=== PATIENT | female | born 1980 | race Caucasian/White ===

== ENCOUNTER 2021-01-16 12:41 | Emergency (ER) | payer OTHER, SELFPAY ==
[2021-01-16 12:50] VITALS: BP 175/87; PULSE 102; RESP 18; TEMP 38.7; O2SAT 100
--- NOTE | 2021-01-16 13:03 | ED.URI ---
HPI - URI/Sore Throat General Chief Complaint: Upper Respiratory Infection Stated Complaint: Sore Throat Source: patient and RN notes reviewed Limitations: no limitations History of Present Illness HPI Narrative: The patient, previously mostly healthy yet without doctor, presents with sore throat. Patient indicates she has a shorter 2-day history of isolated, specific sore throat. This is associated with chills; no earache, cough, congestion; no loss of taste or smell, CP, vomiting/diarrhea, rash, S OB. Symptoms are mild worse with eating Related Data Allergies Allergy/AdvReac Type Severity Reaction Status Date / Time tramadol Allergy Mild Nausea Verified 01/16/21 13:06 trazodone Allergy Mild Nervousness Verified 01/16/21 13:06 clindamycin Allergy Unknown Other Verified 01/16/21 13:06 Review of Systems Review of Systems: General/Constitutional: No weight loss,fever Eyes: N0: Redness,discharge Ears/Nose/Throat: No: Epistaxis,ear discharge Respiratory: Denies: Hemoptysis Gastrointestinal: No Vomiting, Bleeding-rectal Skin: No Lumps, eruption Neurologic: No Focal Weakness,Sz Hematologic: Denies: Petechiae/Purpura Psychiatric: No: Suicida ideationl PMFSH Family History Family History Mother Family history of obesity Family history of hypercholesterolemia Family history of type 2 diabetes mellitus Grandparent Family history of malignant neoplasm of brain Father Family history of hypercholesterolemia Hypertension Family history of type 2 diabetes mellitus Social History Social History Smoking status: Smoker, status unknown Alcohol intake: never Comments At time of signature, agree with nursing past medical, and family history. There is no relevant family history pertinent to the presenting complaint Exam Narrative: General Appearance: Well appearing, Well nourished EYE: PERRLA, Conjunctiva clear Ears: Auditory canal normal, TM normal Nose: Rhinorrhea, Mucousal erythema Mouth/Throat: MM moist, Uvula midline, Pharyngeal erythema, with exudate Neck: Supple, + adenopathy Respiratory: No respiratory distress, Breath sounds equal, Clear to auscultation Cardiovascular: RRR, No JVD Musculoskeletal: Non tender, Normal strength Skin: Warm, Dry Neurological: A&O x3, , Normal affect Course Vital Signs Vital signs: Vital Signs Temperature 101.6 F H 01/16/21 12:50 Pulse Rate 102 H 01/16/21 12:50 Respiratory Rate 18 01/16/21 12:50 Blood Pressure 175/87 H 01/16/21 12:50 Pulse Oximetry 100 01/16/21 12:50 Temperature 101.6 F H 01/16/21 12:50 Pulse Rate 102 H 01/16/21 12:50 Respiratory Rate 18 01/16/21 12:50 Blood Pressure 175/87 H 01/16/21 12:50 Pulse Oximetry 100 01/16/21 12:50 MDM - URI/Sore Throat Lab Data Labs: Strep Screen Positive Group A Strep *(Reference Range: Negative)* Discharge Plan Discharge Clinical Impression: Strep pharyngitis Patient Disposition: Home, Self-Care Condition: Stable Instructions: Antibiotic Form Prescriptions: New amoxicillin-pot clavulanate [Augmentin] 500-125 mg tablet 1 tablet PO Q8H Qty: 30 RF: 0 lidocaine HCl [Lidocaine Viscous] 2 % solution 5 ml MUCOUS MEM QID PRN (Reason: pain) Qty: 100 RF: 0 Follow-up/Referrals: PHYSICIAN,LINSEED CAKE TRIMMER [Primary Care Provider] - Stand Alone Forms: Work/School Release IP
== END 2021-01-16 13:13 | disposition home or self-care (01) ==
PROVIDERS: Emergency Provider Emergency Medicine
DX: J02.0 Streptococcal pharyngitis (principal)
CPT/HCPCS: 87880; 99213; G0463

== ENCOUNTER 2021-04-26 12:51 | Emergency (ER) | payer SELFPAY ==
--- NOTE | ~2021-04-26 | XR_ITS ---
XR foot RT min 3V DATE: 04/26/2021 13:13 INDICATION: Fall. Right foot pain TECHNIQUE: 4 views COMPARISON: None FINDINGS: Plantar calcaneal enthesopathy. No fracture, dislocation, periosteal reaction or bone destruction is detected. IMPRESSION: No fracture or dislocation Plantar calcaneal enthesopathy Reviewed, dictated and finalized at location A. BLACKER
[2021-04-26 13:00] VITALS: BP 141/78; PULSE 101; RESP 18; TEMP 36.4; O2SAT 98
--- NOTE | 2021-04-26 13:37 | ED.LOWEXIN ---
HPI - Extremity Injury (Lower) General Chief Complaint: Extremity Injury, Lower Stated Complaint: Right foot Pain Time Seen by Provider: 04/26/21 13:30 Source: patient and RN notes reviewed Mode of arrival: ambulatory Limitations: no limitations History of Present Illness HPI Narrative: Patient presents today complaining of right foot pain. She slipped on some ice last night and injured her foot. Denies numbness or tingling in the foot or toes. She currently rates her pain 8/10 and has tried no medication or ice for symptoms prior to arrival. Pain increases with weightbearing. MD complaint: foot injury Related Data Home Medications Medication Instructions Recorded Confirmed No Home Medications 04/26/21 04/26/21 Allergies Allergy/AdvReac Type Severity Reaction Status Date / Time tramadol Allergy Mild Nausea Verified 04/26/21 12:54 trazodone Allergy Mild Nervousness Verified 04/26/21 12:54 clindamycin Allergy Unknown Other Verified 04/26/21 12:54 Review of Systems Review of Systems: CONSTITUTIONAL: Denies body aches, fever, chills, or sweats. EYES: Denies visual changes, redness, or discharge. ENT: Denies rhinorrhea, congestion, sore throat, or otalgia. CARDIOVASCULAR: Denies chest pain, palpitations, or edema. RESPIRATORY: Denies cough or dyspnea. GASTROINTESTINAL: Denies abdominal pain, nausea, vomiting, or diarrhea. GENITOURINARY: Denies dysuria or hematuria. SKIN: Denies rash, itching, or wounds. MUSCULOSKELETAL: Denies back pain, or myalgia. + Right foot injury NEUROLOGIC: Denies headache, numbness, tingling, or weakness. PSYCH: Denies depression or anxiety. [facility] Family History Family History Mother Family history of obesity Family history of hypercholesterolemia Family history of type 2 diabetes mellitus Grandparent Family history of malignant neoplasm of brain Father Family history of hypercholesterolemia Hypertension Family history of type 2 diabetes mellitus Social History Social History Smoking status: Smoker, status unknown Alcohol intake: never Comments At time of signature, I have reviewed and agree with nursing past medical, surgical, social and family history unless otherwise noted. Please see nursing chart for further information. There is no relevant family history pertinent to the presenting complaint Exam Narrative: GENERAL: Well-appearing, well-nourished, and in no acute distress. HEAD: Normocephalic, atraumatic. EYES: EOMI. No redness or drainage. Conjunctivae normal. ENT: Mucous membranes pink and moist. NECK: Normal AROM. CHEST: No respiratory distress. EXTREMITIES: Right foot: Tenderness to the plantar aspect of the foot starting at the arch and extending distally to the ball of the foot. No tenderness to the dorsum of the foot. No edema noted. No ecchymosis. Distal sensation intact good capillary refill normal. Pedal pulse normal. Full range of motion of the toes. SKIN: Warm, dry, no rash. Capillary refill normal. Normal skin turgor. NEURO: No focal deficits. Alert and oriented x3. Gait steady. PSYCH: Normal affect. No signs of depression or anxiety. Course Course Level of Care: Express Care Visit Vital Signs Vital signs: Vital Signs Temperature 97.6 F 04/26/21 13:00 Pulse Rate 101 H 04/26/21 13:00 Respiratory Rate 18 04/26/21 13:00 Blood Pressure 141/78 H 04/26/21 13:00 Pulse Oximetry 98 04/26/21 13:00 Temperature 97.6 F 04/26/21 13:00 Pulse Rate 101 H 04/26/21 13:00 Respiratory Rate 18 04/26/21 13:00 Blood Pressure 141/78 H 04/26/21 13:00 Pulse Oximetry 98 04/26/21 13:00 Reviewed. Pt has been instructed to follow up with her PCP regarding her elevated blood pressure today. MDM - Extremity Injury (Lower) Differential Diagnosis Differential diagnosis: Likely other (Foot fracture, contusi
== END 2021-04-26 13:45 | disposition home or self-care (01) ==
PROVIDERS: Emergency Provider Nurse Practitioner
DX: S93.601A Unspecified sprain of right foot, initial encounter (principal); W00.0XXA Fall on same level due to ice and snow, initial encounter
CPT/HCPCS: 73630; 99213; G0463

== ENCOUNTER 2021-11-06 18:19 | Emergency (ER) | payer OTHER, SELFPAY ==
--- NOTE | 2021-11-06 18:23 | ED.URI ---
HPI - URI/Sore Throat General Chief Complaint: Upper Respiratory Infection Stated Complaint: Cough, joint pain, chills Time Seen by Provider: 11/06/21 18:23 Source: patient Mode of arrival: ambulatory Limitations: no limitations History of Present Illness HPI Narrative: Mr. Johnathon Valdez is a 41-year-old female patient presenting to the clinic today with complaints of fever, chills, fatigue, body aches, sore throat, and left-sided abdominal discomfort. She reports this is been going on for a couple days. She denies any known exposure to strep,COVID, or influenza MD elicited complaint: sore throat and nasal congestion Related Data Allergies Allergy/AdvReac Type Severity Reaction Status Date / Time tramadol Allergy Mild Nausea Verified 11/06/21 18:26 trazodone Allergy Mild Nervousness Verified 11/06/21 18:26 clindamycin Allergy Unknown Other Verified 11/06/21 18:26 Review of Systems Review of Systems: Pertinent positives per HPI. Patient denies any fever, rash, headache, visual changes, dizziness, shortness of breath, chest pain, palpitations, nausea, vomiting, diarrhea, constipation, abdominal pain, or any urinary issues. [facility] Family History Family History Mother Family history of obesity Family history of hypercholesterolemia Family history of type 2 diabetes mellitus Grandparent Family history of malignant neoplasm of brain Father Family history of hypercholesterolemia Hypertension Family history of type 2 diabetes mellitus Social History Social History Smoking status: Smoker, status unknown Alcohol intake: never Comments At the time of my signature, I reviewed and agree with the nursing past medical, surgical, social, and family history. There is no relevant family history pertinent to the patient complaint. Exam Narrative: General: Well-developed, obese, in no apparent distress Head: Normocephalic, atraumatic Eyes: Pupils equally round and reactive to light bilaterally, EOM intact, sclera and conjunctive clear, no discharge, lids normal Ears: TMs intact and clear, ear canals clear, no drainage, grossly hearing normal. Nose: Nares patent, clear discharge, mild inflammation, no sinus tenderness. Mouth: Oral pharynx without lesions or masses, good dentition, MMM. Oropharynx red, tonsillar enlargement with yellow-white exudate left greater than right Neck: Supple, trachea midline, positive enlargement of anterior cervical nodes, no thyroid masses or goiter palpable. Cardio: Regular rate and rhythm, s1 and s2 normal, no murmur appreciated. Resp: Clear to auscultation bilaterally, no rhonchi, rales, wheezing or rubs Course Course Emergency Course: Portions of this record may have been created with voice recognition software. Level of Care: Express Care Visit Vital Signs Vital signs: Vital signs reviewed MDM - URI/Sore Throat MDM Narrative Medical decision making narrative: At the time of visit patient is resting comfortably on the exam table. COVID testing and strep culture was obtained. COVID testing was negative in the clinic. I will go ahead and treat for strep pharyngitis as patient has 4-4 Centor criteria. Supportive measures were discussed with the patient she voiced understanding of discharge instructions and agrees to treatment plan. Differential Diagnosis Differential diagnosis: Likely upper respiratory infection, sinusitis, viral infection, bronchitis, influenza, pharyngitis and other (COVID) Discharge Plan Discharge Clinical Impression: Exudative pharyngitis Patient Disposition: Home, Self-Care Condition: Stable Instructions: Antibiotic Form, Pharyngitis (ED) Additional Instructions: Take prescription medications only as prescribed-amoxicillin as prescribed Increase fluids and stay well hydrated Tylenol/motrin for pain/fever Flonase and OTC an
[2021-11-06 18:29] VITALS: BP 132/78; PULSE 102; RESP 20; TEMP 38.1; O2SAT 100
== END 2021-11-06 18:58 | disposition home or self-care (01) ==
PROVIDERS: Emergency Provider Nurse Practitioner Family
DX: J02.9 Acute pharyngitis, unspecified (principal); Z20.822 Contact with and (suspected) exposure to COVID-19
CPT/HCPCS: 87081; 87147; 87426; 99213; C9803; G0463

== ENCOUNTER 2021-11-08 11:34 | Emergency (ER) | payer OTHER, SELFPAY ==
[2021-11-08 11:42] VITALS: BP 141/90; PULSE 92; RESP 16; TEMP 36.9; O2SAT 99
--- NOTE | 2021-11-08 11:43 | ED.URI ---
HPI - URI/Sore Throat General Chief Complaint: Upper Respiratory Infection Stated Complaint: uri Time Seen by Provider: 11/08/21 11:43 Source: patient, RN notes reviewed and old records reviewed Mode of arrival: ambulatory Limitations: no limitations History of Present Illness HPI Narrative: 41-year-old female presents to the [facility] with continued complaints. Was seen 2 days ago for sore throat, swollen tonsils, treated for strep. Patient states she has had 3 doses of amoxicillin still not better. States it still hurts to swallow. Has a history of strep throat. Patient still able to swallow. No drooling noted. Talking in full sentences. MD elicited complaint: sore throat Related Data Allergies Allergy/AdvReac Type Severity Reaction Status Date / Time tramadol Allergy Mild Nausea Verified 11/08/21 11:43 trazodone Allergy Mild Nervousness Verified 11/08/21 11:43 clindamycin Allergy Unknown Other Verified 11/08/21 11:43 Review of Systems Review of Systems: All systems reviewed & are unremarkable except as noted in HPI and below Constitutional: Constitutional: Reports no additional constitutional complaints, Denies chills and Denies fever(s) Eyes: Eyes: Reports no additional eye complaints ENT: Reports as per HPI and Reports sore throat Cardiovascular: Cardiovascular: Reports no additional cardiovascular complaints Respiratory: Respiratory: Reports no additional respiratory complaints Gastrointestinal: Gastrointestinal: Reports no additional gastrointestinal complaints Musculoskeletal: Musculoskeletal: Reports no additional musculoskeletal complaints Integumentary/Breasts: Skin/Breast: Reports system reviewed and no additional complaints, except as docu Neurologic: Reports system reviewed and no additional complaints, except as documented Psychiatric: Psychiatric: Reports no additional psychiatric complaints Allergic/Immunologic: Allergic/Immunologic: Reports no additional allergic/immunologic complaints [facility] Family History Family History Mother Family history of obesity Family history of hypercholesterolemia Family history of type 2 diabetes mellitus Grandparent Family history of malignant neoplasm of brain Father Family history of hypercholesterolemia Hypertension Family history of type 2 diabetes mellitus Social History Social History Smoking status: Smoker, status unknown Alcohol intake: never Comments At the time of my signature, I reviewed and agree with the nursing past medical, surgical, social, and family history. There is no relevant family history pertinent to the patient complaint. Exam Const: General: healthy appearing, no acute distress and alert Nutritional Appearance: well nourished Orientation/consciousness: patient oriented x3 Limitations: no limitations HENMT: Head: normal to inspection Ears: external ears normal, TM's normal bilaterally and EAC's normal General nose exam: Normal external nose present Mouth: Yes Normal oral and palatal mucosa present and Yes lip normal Throat: uvula midline, abnormal tonsil bilateral erythema, exudates and hypertrophy 3+; Negative for crypts and no uvular edema Eyes: General: appearance normal, both eyes and all related structures Conjunctivae: conjunctivae normal Pupils: Equal, round and reactive pupils present Neck: Neck: normal visual inspection, no lymphadenopathy and no meningeal signs Chest: Chest palpation & inspection: normal inspection of the chest Resp: Effort & Inspection: normal respiratory effort and no use of accessory muscles Auscultation: clear to auscultation bilaterally, no crackles, no rales, no rhonchi and no wheezes Cardio: Rate: regular rate Rhythm: regular rhythm Back/Spine/Pelvis: Cervical Spine: normal cervical lordosis Thoracic/Lumbar Spine: thoracic and lumbar spine normal to inspection Skin
[2021-11-08] MEDS: predniSONE 20 MG TABLET 40 MG PO (11:55)
== END 2021-11-08 12:24 | disposition home or self-care (01) ==
PROVIDERS: Emergency Provider Nurse Practitioner
DX: J03.90 Acute tonsillitis, unspecified (principal)
CPT/HCPCS: 36416; 86308; 99213; G0463; J7512

== ENCOUNTER 2022-12-23 09:43 | Emergency (ER) | payer OTHER, SELFPAY ==
[2022-12-23] VITALS (7 sets, daily range): BP systolic 109–125; BP diastolic 78–90; PULSE 79–108; RESP 12–18; TEMP 36.4–36.7; O2SAT 96–99
--- NOTE | ~2022-12-23 | CT_ITS ---
EXAMINATION: CTA chest PE protocol DATE: 12/23/2022 12:56 INDICATION: Elevated d-dimer. Pleuritic chest pain. TECHNIQUE: Computed tomography angiography (CTA) of the chest was performed with 100 mL Omnipaque-350 intravenous contrast timed to evaluate the pulmonary arteries. Coronal maximum intensity projection 3D-reconstructions were created by the technologist. Automated exposure control and iterative reconst ruction technique were employed. Exam dose: 539.56 mGy-cm total exam DLP. COMPARISON: 12/23/2022 PA and lateral chest FINDINGS: There is diagnostic contrast enhancement of the pulmonary arteries and no evidence of pulmo nary embolism. No thoracic aortic aneurysm or dissection. No hilar or mediastinal mass lesion or lymphadenopathy. Heart size is within normal range. No pericardial or pleural effusion. Normal morphology of the adrenal glands. There is atelectasis involving both lungs, primarily the mid and particularly lower lung zones. Other butts no pulmonary consolidation or pulmonary mass lesion is evident. Hepatic steatosis with minimal sparing around the gallbladder. Included skeletal structures are unremarkable. There is IMPRESSION: No evidence of pulmonary embolism Reviewed, dictated and finalized at Location A. Reviewed, dictated and finalized at location B.
--- NOTE | ~2022-12-23 | US_ITS ---
EXAMINATION: US venous doppler [facility] DATE: 12/23/2022 13:53 INDICATION: Pleuritic chest pain. Elevated d-dimer. TECHNIQUE: Grayscale ultrasound images without and with compression and Doppler ultrasound images of the bilateral lower extremity veins were obtained. COMPARISON: None. FINDINGS: The visualized portions of right common femoral vein, profunda (deep) femoral vein, femoral vein, pop liteal vein, posterior tibial veins, peroneal veins, gastrocnemius vein and greater saphenous vein ou tflow are patent. The visualized portions of left common femoral vein, profunda femoral vein, femoral vein, popliteal v ein, posterior tibial veins, peroneal veins, gastrocnemius vein and greater saphenous vein outflow ar e patent. IMPRESSION: 1. No deep venous thrombosis in either lower limb. Reviewed, dictated and finalized at location A.
--- NOTE | ~2022-12-23 | XR_ITS ---
XR chest 2V DATE: 12/23/2022 11:30 INDICATION: Pleuritic chest pain, cough TECHNIQUE: PA and lateral views COMPARISON: 02/07/2018 PA and lateral chest FINDINGS: There is suboptimal expansion of the lungs compared to 02/07/2018 with mild atelectasis in the lower lung zones. No pulmonary consolidation, pleural effusion, pulmonary vascular congestion or pneumothorax is detected. Heart size appears within normal range. IMPRESSION: Suboptimal lung expansion and bilateral lower lung atelectasis compared to 02/07/2018 Reviewed, dictated and finalized at location B. IMPRESSION: Suboptimal lung expansion and bilateral lower lung atelectasis comp ared to 02/07/2018
--- NOTE | ~2022-12-23 | CT_ITS ---
EXAMINATION: CT brain wo con DATE: 12/23/2022 11:26 INDICATION: Posterior headache TECHNIQUE: Computed tomography (CT) of the head was performed without intravenous contrast. The mA wa s adjusted according to patient size. Iterative reconstruction technique was employed. Exam dose: 60 5.33 mGy-cm total exam DLP. COMPARISON: None FINDINGS: No intracranial mass lesion, hemorrhage or cerebrovascular accident. No midline shift or m ass effect. Normal ventricular size. No subdural or epidural hematoma. Mild mucoperiosteal thickening of the right sphenoid sinus. Otherwise the paranasal sinuses and masto id air cells are well developed and aerated. No fracture or bone destruction of the cranial vault. IMPRESSION: No significant intracranial abnormality Reviewed, dictated and finalized at Location A. Reviewed, dictated and finalized at location B.
--- NOTE | 2022-12-23 10:50 | ECG_ITS ---
Measurements Intervals [place] Rate: 99 P: 35 [place]: 148 QRS: 51 QRSD: 92 T: 45 QT: 333 QTc: 429 Interpretive Statements SINUS RHYTHM POSSIBLE LEFT ATRIAL ENLARGEMENT [-0.1mV P WAVE IN V1/V2] NONSPECIFIC T-WAVE ABNORMALITY NO PREVIOUS ECG AVAILABLE FOR COMPARISON Electronically Signed On 12-23-2022 14:29:51 CDT by Rosalind Wilson M.D.
--- NOTE | 2022-12-23 10:53 | ED.HA ---
HPI - Headache General Chief Complaint: Headache Stated Complaint: body headache Time Seen by Provider: 12/23/22 10:13 History of Present Illness HPI Narrative: 42-year-old female reports for evaluation for posterior headache, pleuritic chest pain and back pain x3 days. Patient states she normally does not have headaches that last this long. She reports the headache is in her occiput and extends down into her trapezius. Reports the pain is constant. States that the onset of symptoms, she had 1 episode of emesis and diarrhea 3 days ago but has not had any since. She reports pleuritic chest pain that is deep into her bilateral lower chest and also into the mid back, worse with inspiration, palpation and coughing. Denies radiation of chest pain, not exertional. She states it feels like she has to focus her vision but denies blurred vision, diplopia, floaters, eye pain, pain with EOMs. She denies fever, dyspnea, abdominal pain, dysuria, hematuria, dizziness, otalgia, sore throat, nasal congestion. No history of VTE, denies calf pain. Denies head injury, focal numbness or weakness, difficulty walking or talking, saddle anesthesia, bowel or bladder incontinence Related Data Allergies Allergy/AdvReac Type Severity Reaction Status Date / Time tramadol Allergy Mild Nausea Verified 11/08/21 11:43 trazodone Allergy Mild Nervousness Verified 11/08/21 11:43 clindamycin Allergy Unknown Other Verified 11/08/21 11:43 Review of Systems Review of Systems: CONSTITUTIONAL: Denies fever, chills EYES: Denies visual changes, redness, or discharge. ENT: Denies rhinorrhea, congestion, sore throat, or otalgia. CARDIOVASCULAR: See HPI RESPIRATORY: See HPI GASTROINTESTINAL: Denies abdominal pain, nausea, vomiting, or diarrhea. GENITOURINARY: Denies dysuria or hematuria. SKIN: Denies rash or itching. MUSCULOSKELETAL: See HPI NEUROLOGIC: See HPI PSYCHIATRIC: Denies anxiety or depression. [facility] Family History Family History Mother Family history of obesity Family history of hypercholesterolemia Family history of type 2 diabetes mellitus Grandparent Family history of malignant neoplasm of brain Father Family history of hypercholesterolemia Hypertension Family history of type 2 diabetes mellitus Social History Social History Smoking status: Smoker, status unknown Alcohol intake: never Exam Narrative: GENERAL: Well-appearing, in no acute distress. Patient resting comfortably in exam bed. She is pleasant and conversational. HEAD: Normocephalic, atraumatic EYES: PERRLA, EOMI ENT: Nares clear. Mucous membranes moist. Oropharynx without tonsillar hypertrophy exudate or other lesions. Bilateral TMs are andrade nonbulging. Normal canals. NECK: Supple. No midline cervical spinous tenderness, step-offs or deformities. Tenderness to bilateral trapezius muscles. BACK: No midline thoracolumbar spinous tenderness, step-offs or deformities. Tenderness to the thoracic paraspinous muscles with palpation. No overlying skin changes, no crepitus. CHEST: No respiratory distress. Clear to auscultation, no adventitious breath sounds. HEART: Regular rate and rhythm. No murmur heard. Normal peripheral pulses. ABDOMEN: Soft, nontender, normal active bowel sounds. EXTREMITIES: Normal range of motion. No edema. SKIN: Warm, dry, no rash. NEURO: No focal deficits. Alert and oriented x3. Cranial nerves II through XII intact. Strength 5/5 in BUE and BLE. Sensation intact throughout. No pronator drift. Normal [id number]. No aphasia or dysarthria. PSYCH: Normal mood and affect. Course Vital Signs Vital signs: Vital Signs Temperature 97.6 F 12/23/22 09:52 Pulse Rate 108 H 12/23/22 09:52 Respiratory Rate 12 12/23/22 09:52 Blood Pressure 125/90 12/23/22 09:52 Pulse Oximetry 96 12/23/22 09:52 Oxygen Delivery Room
[2022-12-23] MEDS: PROCHLORPERAZINE EDISYLATE 10 MG/2 ML VIAL IM (11:14)
[2022-12-23] MEDS: diphenhydrAMINE HCl INJ 50 MG/ML VIAL 25 MG IV PUSH (11:15)
[2022-12-23] MEDS: KETOROLAC 30 MG/ML VIAL (*BKC) IV PUSH (11:15)
[2022-12-23] MEDS: CYCLOBENZAPRINE HCL 10 MG TABLET PO (11:16)
[2022-12-23] MEDS: SODIUM CHLORIDE 0.9% IV 1,000 ML 999 ML IV CONT (11:16)
[2022-12-23 11:17] LABS: Basophils Percent Auto 0.4 % (0.2-1.2); Eosinophils Absolute Auto 0.2 K/mm3 (0-0.3); Hematocrit 46.7 % (37.0-47.0); Hemoglobin 15.2 g/dL (12.0-15.0); Immature Granulocyte Absolute 0.05 K/mm3 (0.00-0.031); Immature Granulocyte Percent A 0.7 % (0-0.5); Lymphocytes Percent Auto 14.8 % (18.3-44.2); Mean Corpuscular HGB Conc 32.5 g/dl (32-36); Mean Corpuscular Hemoglobin 30.5 pg (26-34); Mean Corpuscular Volume 93.6 fl (80-100); Mean Platelet Volume 9.6 fl (7.4-10.4); Monocytes Absolute Auto 0.7 K/mm3 (0.1-0.6); Monocytes Percent Auto 9.9 % (2.6-8.5); Neutrophils Absolute Auto 4.8 K/mm3 (1.3-6.7); Neutrophils Percent Auto 71.2 % (45.5-73.1); Platelet Count Result 236 k/mm3 (150-375); Red Blood Count 4.99 M/mm3 (4.2-5.4); Red Cell Distribution Width 13.5 % (11.5-14.5); White Blood Count 6.8 K/mm3 (4.5-10.0)
[2022-12-23 11:29] LABS: Alanine Aminotransferase 41 U/L (6-35); Albumin Level 4.3 g/dL (3.5-5.1); Alkaline Phosphatase 82 U/L (38-126); Anion Gap 10 mmol/L (8-16); Aspartate Amino Transferase 45 U/L (14-36); Bilirubin,Total 0.6 mg/dL (0.2-1.3); Blood Urea Nitrogen 5 mg/dL (7-17); Calcium 8.8 mg/dL (8.4-10.2); Carbon Dioxide 24 mmol/L (22-30); Chloride 101 mmol/L (98-107); Estimated Glomerular Filt Rate > 60; Glucose 99 mg/dL (65-110); Lipase 57 U/L (23-300); Potassium 3.2 mmol/L (3.4-5.0); Sodium 135 mmol/L (137-145)
[2022-12-23 11:40] LABS: Troponin I < 0.012 ng/mL (0.000-0.034)
[2022-12-23 11:50] LABS: Prothrombin Time 13.1 Seconds (11.1-14.7)
[2022-12-23 11:51] LABS: Partial Thromboplastin Time 29.7 SECONDS (22.3-36.8)
[2022-12-23 11:52] LABS: Influenza A QL RT-PCR Negative (Negative); Influenza B QL RT-PCR Negative (Negative); SARS-CoV-2 RNA PCR Negative (Negative)
[2022-12-23 12:00] LABS: Magnesium 2.2 mg/dL (1.6-2.3)
[2022-12-23 12:07] LABS: D Dimer 1.15 ug/mL (<0.48)
[2022-12-23] MEDS: POTASSIUM CHLORIDE 20 MEQ PACKET (FOR LIQUID) 40 MEQ PO (12:21)
[2022-12-23 13:07] LABS: Appearance Urine Turbid (Clear); Bacteria Urine 4+ /hpf; Bilirubin Urine 2+ (Negative); Blood Urine Negative (Negative); Color Urine Dark Yellow (Yellow); Glucose Urine UA Negative (Negative); Ketones Urine Trace mg/dL (Negative); Leukocyte Esterase Ur Trace LEU/UL (Negative); Need Manual Microscopic Reviewed; Nitrate Urine Negative (Negative); Non Pathogenic Casts >20; Protein Urine 1+ mg/dL (Negative); Specific Grav Ur 1.027 (1.001-1.035); Squamous Epithelial Cell Urine Many /hpf (Few); WBC Urine 21-50 /hpf
[2022-12-23 13:08] LABS: Add Urine Microscopic? YES
[2022-12-23 14:33] LABS: Troponin I < 0.012 ng/mL (0.000-0.034)
== END 2022-12-23 15:05 | disposition home or self-care (01) ==
PROVIDERS: Emergency Provider Physician Assistant
DX: R51.9 Headache, unspecified (principal); R07.89 Other chest pain; E87.6 Hypokalemia; Z20.822 Contact with and (suspected) exposure to COVID-19; R94.31 Abnormal electrocardiogram [ECG] [EKG]
CPT/HCPCS: 36415; 70450; 71046; 71275; 80053; 81001; 81025; 83690; 83735; 84484; 85025; 85380; 85610; 85730; 87086; 87636; 93005; 93970; 96361; 96372; 96374; 96375; 99284; A9270; J0780; J1200; J1885; J7030; Q9967

== ENCOUNTER 2024-01-13 01:50 | Emergency (ER) | payer OTHER, SELFPAY ==
[2024-01-13] VITALS (14 sets, daily range): BP systolic 115–137; BP diastolic 74–85; PULSE 91–106; RESP 15–23; TEMP 36.4; O2SAT 97–100
--- NOTE | ~2024-01-13 | CT_ITS ---
EXAMINATION: CT facial & cervical spine wo DATE: 01/13/2024 04:27 INDICATION: Head injury. TECHNIQUE: Computed tomography (CT) of the maxillofacial region and cervical spine was performed with out intravenous contrast. Automated exposure control and iterative reconstruction technique were empl oyed. The dose-length product was 440.77 mGy-cm. COMPARISON: None FINDINGS: MAXILLOFACIAL CT: The orbits are normal. There is left periorbital soft tissue swelling. There are fractures of the galen al bones and nasal processes of maxilla. There is a fracture of anterior wall of left maxillary sinus . There is a fracture of left infraorbital rim. There is mild mucosal thickening in the paranasal sin uses. Dental disease is noted. CERVICAL SPINE CT: There is kyphosis of cervical spine. There is 8 degrees levocurvature of cervical spine. Vertebral israel dy heights are normal. There is moderately decreased disc height at C5-C6 and C6-C7. The following di sc levels are specifically discussed: C2-C3: There is no uncovertebral joint osteoarthritis. There is no facet joint osteoarthritis. There is no neural foraminal stenosis. There is no central canal stenosis. C3-C4: There is mild bilateral uncovertebral joint osteoarthritis. There is no facet joint osteoarthr itis. There is no neural foraminal stenosis. There is no central canal stenosis. C4-C5: There is mild bilateral uncovertebral joint osteoarthritis. There is no facet joint osteoarthr itis. There is no neural foraminal stenosis. There is no central canal stenosis. C5-C6: There is moderate bilateral uncovertebral joint osteoarthritis. There is moderate bilateral fa cet joint osteoarthritis. There is mild bilateral neural foraminal stenosis. There is mild central ca nal stenosis. C6-C7: There is mild right and moderate left uncovertebral joint osteoarthritis. There is mild bilate ral facet joint osteoarthritis. There is mild left neural foraminal stenosis. There is mild central c anal stenosis. C7-T1: There is no uncovertebral joint osteoarthritis. There is severe bilateral facet joint osteoart hritis. There is mild right neural foraminal stenosis. There is no central canal stenosis. IMPRESSION: 1. Fractures of the nasal bones, nasal processes of maxilla, anterior wall of left maxillary sinus, a nd left infraorbital rim. 2. Moderate cervical spondylosis. Reviewed, dictated and finalized at location A. IMPRESSION: 1. Fractures of the nasal bones, nasal processes of maxilla, anterior wall of l eft maxillary sinus, and left infraorbital rim. 2. Moderate cervical spondylosis.
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
[2024-01-13 02:55] LABS: Basophils Percent Auto 0.5 % (0.2-1.2); Eosinophils Absolute Auto 0.1 K/mm3 (0-0.3); Eosinophils Percent Auto 0.8 % (0-4.4); Hematocrit 38.3 % (37.0-47.0); Hemoglobin 12.7 g/dL (12.0-15.0); Immature Granulocyte Absolute 0.06 K/mm3 (0.00-0.031); Immature Granulocyte Percent A 0.8 % (0-0.5); Lymphocytes Absolute Auto 1.65 K/mm3 (0.9-3.2); Lymphocytes Percent Auto 20.6 % (18.3-44.2); Mean Corpuscular HGB Conc 33.2 g/dl (32-36); Mean Corpuscular Hemoglobin 31.1 pg (26-34); Mean Corpuscular Volume 93.6 fl (80-100); Mean Platelet Volume 9.3 fl (7.4-10.4); Monocytes Absolute Auto 0.5 K/mm3 (0.1-0.6); Monocytes Percent Auto 5.6 % (2.6-8.5); Neutrophils Absolute Auto 5.7 K/mm3 (1.3-6.7); Neutrophils Percent Auto 71.7 % (45.5-73.1); Platelet Count Result 256 k/mm3 (150-375); Red Blood Count 4.09 M/mm3 (4.2-5.4); Red Cell Distribution Width 14.1 % (11.5-14.5)
[2024-01-13 03:04] LABS: Alanine Aminotransferase 67 U/L (6-35); Albumin Level 4.2 g/dL (3.5-5.1); Alkaline Phosphatase 96 U/L (38-126); Anion Gap 13 mmol/L (4-12); Aspartate Amino Transferase 85 U/L (14-36); Bilirubin,Total 0.3 mg/dL (0.2-1.3); Blood Urea Nitrogen 16 mg/dL (7-17); Calcium 8.7 mg/dL (8.4-10.2); Carbon Dioxide 21 mmol/L (22-30); Chloride 108 mmol/L (98-107); Estimated Glomerular Filt Rate > 60; Glucose 125 mg/dL (65-110); Potassium 3.3 mmol/L (3.4-5.0); Sodium 142 mmol/L (137-145)
[2024-01-13 03:10] LABS: Add Urine Microscopic? YES; Appearance Urine Cloudy (Clear); Bacteria Urine 4+ /hpf; Bilirubin Urine Negative (Negative); Blood Urine Negative (Negative); Color Urine Yellow (Yellow); Glucose Urine UA Negative (Negative); Ketones Urine 1+ mg/dL (Negative); Leukocyte Esterase Ur Trace LEU/UL (Negative); Nitrate Urine Positive (Negative); Non Pathogenic Casts 0-2; Protein Urine Trace mg/dL (Negative); RBC Urine 0-2 /hpf (0-2); Specific Grav Ur 1.036 (1.001-1.035); Squamous Epithelial Cell Urine Moderate /hpf (Few); pH Urine 5.5 (5.0-9.0)
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
--- NOTE | 2024-01-13 04:06 | PC.NURSE ---
Patient taken to CT via stretcher at this time.
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
== END 2024-01-13 06:24 | disposition home or self-care (01) ==
PROVIDERS: Emergency Provider Emergency Medicine; PCP Family Medicine
DX: S02.2XXA Fracture of nasal bones, initial encounter for closed fracture (principal); S02.85XA Fracture of orbit, unspecified, initial encounter for closed fracture; S02.40DA Maxillary fracture, left side, initial encounter for closed fracture; Z86.19 Personal history of other infectious and parasitic diseases; F17.210 Nicotine dependence, cigarettes, uncomplicated; Y04.2XXA Assault by strike against or bumped into by another person, initial encounter; Y04.8XXA Assault by other bodily force, initial encounter
CPT/HCPCS: 36415; 70486; 70496; 70498; 72125; 80053; 81001; 85025; 87086; 87186; 99284; Q9967

== ENCOUNTER 2024-08-29 09:41 | Outpatient (CLI) | payer OTHER, SELFPAY ==
[2024-08-29 10:16] LABS: Hematocrit 42.4 % (37.0-47.0); Hemoglobin 13.8 g/dL (12.0-15.0); Mean Corpuscular HGB Conc 32.5 g/dl (32-36); Mean Corpuscular Hemoglobin 31.8 pg (26-34); Mean Corpuscular Volume 97.7 fl (80-100); Mean Platelet Volume 9.7 fl (7.4-10.4); Platelet Count Result 277 k/mm3 (150-375); Red Blood Count 4.34 M/mm3 (4.2-5.4); Red Cell Distribution Width 12.8 % (11.5-14.5); White Blood Count 8.7 K/mm3 (4.5-10.0)
--- OUTSIDE RECORDS SUMMARY | 2024-08-29 10:24 | XMS_ITS | Clinical Summary ---
Author Organization [facility] Address [address] [place] [address] Phone Care Team Providers Care Precision Instrument Maker Name Role Phone Unavailable Primary Care Provider Unavailabl e Allergies Active Allergy Reactions Criticality Noted Date Comments Clindamycin Nausea and Vomiting Low 07/17/2021 Tramadol Nausea and Vomiting Low 04/19/2023 Trazodone-Dietary Supp No.8 Nausea and Vomiting Low 04/19/2023 Medications oxyCODONE-acetam inophen (PERCOCET) 5-325 mg tabletIndication s:Sprain of right knee, unspecified ligament, initial encounter,Right leg pain Take 1 Tablet by mouth every 4 hours as needed for Pain. Max Daily Amount: 6 Tablets 20 Tablet 04/20/2023 Active cyclobenzaprine (FLEXERIL) 10 mg tablet Take 1 Tablet (10 mg) by mouth 3 times daily as needed for Spasm. 20 Tablet 04/20/2023 Active cyclobenzaprine (FLEXERIL) 10 mg tablet Take 1 Tablet (10 mg) by mouth 3 times daily as needed for Spasm. 15 Tablet 10/27/2023 Active methylPREDNISolo ne (Medrol, Reynold,) 4 mg Tablets, Dose Pack Take as directed. 21 Tablet 07/16/2024 Active Encounters Date Type Department Care Team Description 08/13/2024 External Device Data [facility] ABSTRACTION Provider, Abstract 08/13/2024 External Device Data [facility] ABSTRACTION Provider, Abstract 07/23/2024 External Device Data [facility] ABSTRACTION Provider, Abstract 07/23/2024 External Device Data [facility]STRA[facility] Provider, Abstract 07/23/2024 External Device Data [facility]STRACTION Provider, Abstract 07/16/2024 10:34 PM CDT - 07/16/2024 11:58 PM CDT Emergency [facility] Emergency Department [address] [place] [address] Ren Reid MD Cervical radiculopathy (Primary Dx) Discharge Disposition: Home or Self Care 07/16/2024 Travel 06/18/2024 External Device Data [facility] ABSTRACTION Provider, Abstract 05/29/2024 External Device Data [facility] ABSTRACTION Provider, Abstract from Last 3 Months Social History Tobacco Use Types Packs/Day Years Used Date Smoking Tobacco: Every Day Cigarettes Tobacco Cessation:Ready to Q uit: Not Asked; Counseling Given: Not Answered Alcohol Use Standard Drinks/Week Comments Yes 0 (1 standard drink = 0.6 oz pur e alcohol) half Pint a day Feeling Safe Answer Date Recorded Are you in a relationship wi th someone who hurts you emotionally and/or physically? 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 Gender Identity Not on file Sexual Orientation Not on file Last Filed Vital Signs Vital Sign Reading Time Taken Comments Blood Pressure 126/85 07/16/2024 11:57 PM CDT Pulse 81 07/16/2024 11:57 PM CDT Temperature 36.7 C (98 F) 07/16/2024 11:57 PM CDT Respiratory Rate 16 07/16/2024 11:57 PM CDT Oxygen Saturation 100% 07/16/2024 11:57 PM CDT Inhaled Oxygen Concentration - - Weight 104.1 kg (229 lb 8 oz) 07/16/2024 8:48 PM CDT Height 165.1 cm (5' 5) 07/16/2024 8:48 PM CDT Body Mass Index 38.19 07/16/2024 8:48 PM CDT Plan of Treatment Health Maintenance Due Date Last Done Comments Pre-Diabetes and Diabetes Screening 1980 HEPATITIS B VACCINES (1 of 3 - 19+ 3-dose series) 10/31/1999 HPV/Cotest (21-29) 2001 CERVICAL CANCER SCREENING 2010 HPV/Cotest (30-65) 2010 PAP SMEAR 2010 BREAST CANCER SCREENING 2020 INFLUENZA VACCINE (#1) 2023 DTAP/TDAP/TD VACCINES (2 - T d or Tdap) 07/18/2031 07/17/2021 HPV VACCINES Aged Out No longer eligi ble based on patient's age to complete this topic Procedures Procedure Name Priority Date/Time Associated Diagnosis Comments CT CERVICAL SPINE WO CONTRAST Stat 07/16/2024 11:26 PM CDT from Last 3 Months Results * CT CERVICAL SPINE WO CONTRAST (07/16/2024 11:26 PM CDT) Anatomical Region Laterality Modality Spine Computed Tomogra phy 07/16/2024 11:2 6 PM CDT Impressions 07/16/2024 11:38 PM CDT IMPRESSION: No acute abnormality. Mild disc degeneration without evidence of significant osseous spinal canal or neural foraminal stenosis. DICTATION LOCATION: Location 4 Narrative 07/16/2024 11:38 PM CDT EXAM: CT CERVICAL SPINE WO CONTRAST, 07/16/2024 11:26 PM HISTORY: 43 years Female neck pain radiating down left arm TECHNIQUE: Axial images were obtained of the cervical spine without intravenous contrast. Sagittal and coronal reformations were generated. In accordance with CT policies/protocols and the ALARA principal, radiation dose reduction techniques (such as automated exposure control, adjustment of mA/kV according to patient size and/or iterative reconstruction technique) were utilized for this examination. COMPARISON: None available at the time of dictation. FINDINGS: Spinal alignment is normal. No acute cervical spine fractures are seen. Vertebral bodies are normal in height. There is no suspicious lytic or sclerotic osseous lesion. The visible portions of the skull base and intracranial anatomy are normal. There is mild cervical spine disc and facet degeneration. There is no significant disc herniation, central canal stenosis or neural foraminal narrowing. The paraspinal soft tissues are unremarkable. Lung apices are clear. Procedure Note August Frances MD - 07/16/2024 EXAM: CT CERVICAL SPINE WO CONTRAST, 07/16/2024 11:26 PM HISTORY: 43 years Female neck pain radiating down left arm TECHNIQUE: Axial images were obtained of the cervical spine without intravenous contrast. Sagittal and coronal reformations were generated. In accordance with CT policies/protocols and the ALARA principal, radiation dose reduction techniques (such as automated exposure control, adjustment of mA/kV according to patient size and/or iterative reconstruction technique) were utilized for this examination. COMPARISON: None available at the time of dictation. FINDINGS: Spinal alignment is normal. No acute cervical spine fractures are seen. Vertebral bodies are normal in height. There is no suspicious lytic or sclerotic osseous lesion. The visible portions of the skull base and intracranial anatomy are normal. There is mild cervical spine disc and facet degeneration. There is no significant disc herniation, central canal stenosis or neural foraminal narrowing. The paraspinal soft tissues are unremarkable. Lung apices are clear. IMPRESSION: No acute abnormality. Mild disc degeneration without evidence of significant osseous spinal canal or neural foraminal stenosis. DICTATION LOCATION: Location 4 us Ren Reid MD CT ORDERABLES Final Result from Last 3 Months Insurance [employer] [place]
--- OUTSIDE RECORDS SUMMARY | 2024-08-29 10:24 | XMS_ITS | Referral Summary ---
Author Organization [facility] Address [address] [place] [address] Care Team Providers Care Administrative Library Assistant Name Role Phone No, Physician Primary Care Provider [phone] Allergies Active Allergy Reactions Criticality Noted Date Comments Clindamycin Nausea & Vomiting Low 07/17/2021 Tramadol Headache,Nausea only Low 08/09/2021 Trazodone Headache,Nausea only Reaction: Headache, Nausea, Medications ondansetron ODT (ZOFRAN-ODT) 4 mg disintegrating tablet Take 1 tablet (4 mg total) by mouth every 8 (eight) hours as needed for nausea or vomiting 12 tablet 2 Active naproxen (NAPROSYN) 500 mg tablet Take 1 tablet (500 mg total) by mouth 2 (two) times a day as needed for pain (pain) 20 tablet 2 Active cyclobenzaprine (FLEXERIL) 10 mg tablet Take 1 tablet (10 mg total) by mouth nightly as needed for muscle spasms 20 tablet 2 Active Active Problems Problem Noted Date Diagnosed Date Vitamin D deficiency, unspecified 04/27/2024 Pain in right knee 04/27/2024 Overweight 04/27/2024 Low back pain 04/27/2024 Laryngitis 04/27/2024 Hematuria 04/27/2024 Disorder of thyroid, unspecified 04/27/2024 Diarrhea 04/27/2024 Contact dermatitis 04/27/2024 Abnormal weight gain 04/27/2024 Community acquired pneumonia of left lower lobe of lung 02/09/2024 Pneumonia due to organism 02/09/2024 Hyperlipidemia 05/04/2016 Cervical dysplasia 05/04/2016 Cervical intraepithelial neoplasia grade 1 05/04 Dietary counseling and surveillance 07/14/2014 Pain in joint, multiple sites 07/14/2014 Carpal tunnel syndrome, right upper limb 015 Immunizations Immunization Administration Dates Next Due Tdap 07/17/2021 Social History Tobacco Use Types Packs/Day Years Used Date Smoking Tobacco: Every Day Cigarettes Smokeless Tobacco: Never Alcohol Use Standard Drinks/Week Comments Yes 0 (1 standard drink = 0.6 oz pur e alcohol) Personal Safety Answer Date Recorded Have you ever been in or are you currently in a harmful physical or emotional relationship or is someone making you feel afraid or unsafe? 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 Gender Identity Not on file Sexual Orientation Not on file Last Filed Vital Signs Vital Sign Reading Time Taken Comments Blood Pressure 150/95 04/27/2024 11:48 AM PATTERN FINISHER Pulse 92 04/27/2024 11:48 AM PATTERN FINISHER Temperature 36.8 C (98.2 F) 04/27/2024 11:48 AM PATTERN FINISHER Respiratory Rate 18 04/27/2024 11:48 AM PATTERN FINISHER Oxygen Saturation 97% 04/27/2024 11:48 AM PATTERN FINISHER Inhaled Oxygen Concentration - - Weight 99.8 kg (220 lb) 04/27/2024 11:48 AM PATTERN FINISHER Height 165.1 cm (5' 5) 02/09/2024 10:38 AM PATTERN FINISHER Body Mass Index 36.61 02/09/2024 10:38 AM PATTERN FINISHER Plan of Treatment Not on file Insurance [employer] [facility] Care Teams Administrative Library Assistant Relationship Specialty Start Date End Date No, Physician PCP - General 07/17/21
--- OUTSIDE RECORDS SUMMARY | 2024-08-29 10:24 | XMS_ITS | Clinical Summary ---
Author Organization [facility] Address [address] [place] [address] Care Team Providers Care Talent Scout Name Role Phone No, Physician Primary Care Provider [phone] Allergies Active Allergy Reactions Criticality Noted Date [...] Immunization Administration Dates Next Due Tdap 07/17/2021 Surgical History Surgery Date Site/Laterality Comments TUBAL LIGATION Family History Medical History Relation Name Comments Diabetes Father Hyperlipidemia Father Hypertension Father Stroke Father Cirrhosis Mother Diabetes Mother Hyperlipidemia Mother Hypertension Mother Relation Name Status Comments Father Mother Social History Tobacco Use Types Packs/Day Years [...] on file Legal Sex Female 9:19 AM MOUNTER 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 PIPE Gender Identity Not on file Sexual Orientation Not on file Obstetrics History Last Filed Vital Signs Vital Sign Reading Time Taken Comments Blood Pressure 150/95 04/27/2024 11:48 AM MOUNTER SMOKING PIPE Pulse 92 04/27/2024 11:48 AM MOUNTER SMOKING PIPE Temperature 36.8 C (98.2 F) 04/27/2024 11:48 AM MOUNTER SMOKING PIPE Respiratory Rate 18 04/27/2024 11:48 AM MOUNTER SMOKING PIPE Oxygen Saturation 97% 04/27/2024 11:48 AM MOUNTER SMOKING PIPE Inhaled Oxygen Concentration - - Weight 99.8 kg (220 lb) 04/27/2024 11:48 AM MOUNTER SMOKING PIPE Height 165.1 cm (5' 5) 02/09/2024 10:38 AM MOUNTER SMOKING PIPE Body Mass Index 36.61 02/09/2024 10:38 AM MOUNTER SMOKING PIPE Plan of Treatment Health Maintenance Due Date Last Done Comments Breast Cancer Screening-Mammogram 1980 Cervical Cancer Screening 1980 Depression Screening 1980 Varicella Vaccines (1 of - + 2-dose series) 1993 Hepatitis B Screening 1998 Regular Well Visit/Exam 18-64 1998 Pneumococcal vaccine <65 (1 of 2 - PCV) 10/31/1999 Covid-19 Vaccine ( - 2023-2 5 season) 2023 06/23/2020 Influenza Vaccine (Season Ended) 2024 DTaP/Tdap/Td Vaccine (2 - Td or Tdap) 07/18/2031 07/17/2021 Hepatitis C Screening Completed 04/27/2024 HPV Vaccines Aged Out No longer eligi ble based on patient's age to complete this topic Insurance [facility] Care Teams Talent Scout Relationship Specialty Start Date End Date No, Physician PCP - General 07/17/21
--- OUTSIDE RECORDS SUMMARY | 2024-08-29 10:24 | XMS_ITS | Clinical Summary ---
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 Gender Identity Not on file Sexual Orientation Not on file Plan of Treatment Health Maintenance Due Date Last Done Comments Hepatitis C Virus (HCV) Screening 1980 TdaP Immunization 1980 Hepatitis B Immunization (1 of 3 - 19+ 3-dose series) 10/31/1999 Pap Smear 2001 Cervical Cancer Screening (CCS) 2010 HPV/Cotest 2010 Discussion re Starting/Frequ ency of Mammograms 2020 Influenza Immunization (#1) 2023 SARS-COV-2 Immunization ( season) 2023 Respiratory Syncytial Virus (RSV) Immunization (Adult) (1 - 1-dose 75+ series) 10/31/2055 Meningococcal Immunization (ACWY) Aged Out No longer eligible based on patient's age to complete this topic Pneumococcal Immunization Combined Aged Out No longer eligible based on patient's age to complete this topic Rotavirus Immunization Aged Out No lo nger eligible based on patient's age to complete this topic Insurance [employer] on file
--- OUTSIDE RECORDS SUMMARY | 2024-08-29 10:24 | XMS_ITS | Continuity of Care Document ---
Author Organization [facility] Address [address] [place] [address] Phone Care Team Providers Care Head Waiter Name Role Phone Alexander Santos MD Unavailable Unavailable Allergies, Adverse Reactions, Alerts Substance Reaction Status Criticality clindamycin Active No Information tramadol Active No Information trazodone Active No Information Medications Medication Instructions Dosage Effective Dates (start - stop) Status Comments lidocaine 5 % topical patch apply 1 patch by transdermal route every day (May wear up to 12hours.) 1.00 patch - Active Lexapro 10 mg tablet take 1 tablet by oral route every day 10 MG - Active Procedures Procedure Date OFFICE/OUTPATIENT VISIT, EST OFFICE/OUTPATIENT VISIT, EST PREV VISIT, EST, AGE 18-39 OFFICE/OUTPATIENT VISIT, EST OFFICE/OUTPATIENT VISIT, EST OFFICE/OUTPATIENT VISIT, EST PREV VISIT, EST, AGE 18-39 OFFICE/OUTPATIENT VISIT, EST OFFICE/OUTPATIENT VISIT, EST OFFICE/OUTPATIENT VISIT, EST OFFICE/OUTPATIENT VISIT, EST OFFICE/OUTPATIENT VISIT, EST OFFICE/OUTPATIENT VISIT, EST PREV VISIT, NEW, AGE 18-39 OFFICE/OUTPATIENT VISIT, NEW Advance Directives Directive Yes / No Effective Date File Name No Information Encounters Encounter Description Practice Location Reason(s) For Visit Diagnoses Date Provider Providers Copied on Encounter OFFICE/OUTPA TIENT VISIT, EST [facility] [address] [facility] [place], [place], [address], [place] tel:[phone] [facility] pain1 (chief complaint) Bursitis of left shoulder 5 Tom Boyer [address], [place], [place], [address] , [place]. [phone] OFFICE/OUTPA TIENT VISIT, EST [facility], [address], [place], [place], [address], [place] tel:[phone] [facility] hep (chief complaint) HLP (chief complaint) gout1 (chief complaint) back pain1 (chief complaint) anxiety1 (chief complaint) Liver diseaseBursitis of left shoulderMixed hyperlipidemiaGoutG eneralized Anxiety Disorder 5 Tom Boyer [address], [address], [place], [place], [address] , [place]. [phone] PREV VISIT, EST, AGE 18-39 [facility], [address], [place], [place], [address], [place] tel:[phone] [facility] Medicine PHysical (chief complaint) Abnormal weight gainChronic pain syndromeEncounter for general adult medical exam w abnormal findings 9 Tom Boyer [address], [address], [place], [place], [address] , [place]. [phone] Referring Provider: Alexander Santos [address], [place], [place], [address]. tel:[phone] OFFICE/OUTPA TIENT VISIT, EST [facility], [address], [place], [place], [address], [place] tel:[phone] [facility] Medicine knee pain1 (chief complaint) weight gain1 (chief complaint) Pain in right kneeBody mass index (BMI) 37.0-37.9, adultEffusion, right kneeAbnormal weight gain - 8 Tom Boyer [address], [address], [place], [place], [address] , [place]. [phone] OFFICE/OUTPA TIENT VISIT, EST [facility], [address], [place], [place], [address], [place] tel:[phone] [facility] Medicine rash1 (chief complaint) cough1 (chief complaint) Contact dermatitisLaryngiti s 8 Tom Munoz. [address], [place], [place], [address] , [place]. tel:[phone] Referring Provider: Rosalee Brunner [address], [place], [place], [address]. tel:[phone] PREV VISIT, EST, AGE 18-39 [facility], [address], [place], [place], [address], [place] tel:[phone] [facility] Physical (chief complaint) Body mass index (BMI) 36.0-36.9, adultEncounter for general adult medical exam w abnormal findingsLumbagoAbno rmal weight gain 0201 8 Tom Munoz. [address], [place], [place], [address] , [place]. [phone] Referring Provider: [address], [place], [place], [address]. tel:[phone] OFFICE/OUTPA TIENT VISIT, EST [facility], [address], [place], [place], [address], [place] tel:[phone] [facility] overweight 1 (chief complaint) sinus (chief complaint) hematuria1 (chief complaint) thyroid1 (chief complaint) HematuriaDisorder of thyroid, unspecifiedOverweig ht 6 Tom Munoz. [address], [place], [place], [address] , [place]. tel:[phone] Referring Provider: Rosalee Brunner [address], [place], [place], [address]. tel:[phone] OFFICE/OUTPA TIENT VISIT, EST [facility], [address], [place], [place], [address], [place] tel:[phone] [facility] UTI1 (chief complaint) thyroid (chief complaint) low D (chief complaint) Weight gain1 (chief complaint) HematuriaDisorder of thyroid, unspecifiedVitamin D deficiency, unspecifiedBody mass index (BMI) 32.0-32.9, adult 6 Tom Munoz. [address], [place], [place], [address] , [place]. tel:[phone] Referring Provider: [address], [place], [place], [address]. tel:[phone] OFFICE/OUTPA TIENT VISIT, [facility], [address], [place], [place], [address], [place] tel:[phone] [facility] diarrhea1 (chief complaint) back pain1 (chief complaint) DiarrheaLumbago 6 Tom Munoz. [address], [place], [place], [address] , [place]. tel:[phone] Referring Provider: Rosalee Brunner [address], [place], [place], [address]. tel:[phone] OFFICE/OUTPA TIENT VISIT, [facility], [address], [place], [place], [address], [place] tel:[phone] [facility] numbness1 (chief complaint) back pain1 (chief complaint) joint pain1 (chief complaint) weight gain1 (chief complaint) Carpal tunnel syndrome, right upper limbLow back painAbnormal weight gain 5 Tom Boyer [address], [place], [place], [address] , [place]. tel:[phone] Referring Provider: [address], [place], [place], [address]. tel:[phone] OFFICE/OUTPA TIENT VISIT, [facility], [address], [place], [place], [address], [place] tel:[phone] [facility] knee pain (chief complaint) Dietary surveillance and counselingPain in joint involving multiple sites 5 Tom Munoz. [address], [place], [place], [address] , [place]. tel:[phone] Referring Provider: Alexander Santos, [address], [place], [place], [address]. tel:[phone] PREV VISIT, NEW, AGE 18-39 [facility], [address], [place], [place], [address], [place] tel:[phone] [facility] Physical (chief complaint) Dietary surveillance and counselingRoutine Medical ExamPain in joint involving multiple sitesCarpal Tunnel SyndromeRoutine Medical Exam 5 Tom Munoz. [address] [facility] [address], [place], [place], [address] , [place]. tel:[phone] Family History Family Member Type Diagnosis Age At Onset Mother Problem (finding) Diabetes mellitus Father Problem (finding) Alive and well Father Problem (finding) Coronary artery disease Brother Problem (finding) Alive and well Payers Payer name Insurance type Covered alliance party ID Luis chicas(s) [facility] [id number] Social History Type Description Quantity Date Captured Comments Alcohol Use Details Caffeine Use Details Unknown Tobacco Use Status Heavy cigarette smok er (20-39 cigs/day) Smoking Status Heavy tobacco smoker Sex Female Vital Signs Date / Time: Height Weight BMI Pulse Rate Blood Pressure Temperature Respiratory Rate Body Surface Area Head Circumference BMI percentile Pulse Ox Inhaled Ox 9:36 AM 65.00 in 233.40 lbs 38.8 4 kg/m eter (2) 93 /min 130/80 mm[Hg] 98.0 F 16 /min Chief Complaint And Reason For Visit From encounter dated '08/13/2024 09:32'. pain1 (chief complaint). Description: Pt c/o medial to left scapular pain for several months Pt denies any radiation of pain to left arm Pt denies any neck pain Pt has DDD around neck Pt c/o sharp pain all day just medial to left scapular area. Pt denies any injury. Pt has not started physical therapy yet. and she has not heard from ortho and she states tht lidocaine patch does not help and she failed OTC NSAID Plan Of Treatment Date Type Action Status Goal Special diet education compl eted Goal Tobacco cessation counseling completed Goal Special diet education compl eted Goal Special diet education compl eted Goal Prescribed dietary intake co mpleted Goal Special diet education compl eted Goal Tobacco cessation counseling completed Referral Ordered: Tyler Caputo -[facility] Physicians : Internal Medicine : Gastroenterology (related to Liver disease) ordered Referral Ordered: Orthopedic Surgery (related to Bursitis of left shoulder) ordered Referral Ordered: Physical Therapy (related to Bursitis of left shoulder) ordered Referral Ordered: Referrals: Orthopedic Surgery. Evaluate and treat ordered Referral Referred To: Tyler Caputo [address] [place] [address], [phone] Ordered: Referrals: [facility]opathic [facility] Osteopathic Physicians : Internal Medicine : Gastroenterology. Tyler Caputo. Evaluate and treat ordered Referral Ordered: Pain Medicine (related to Chronic pain syndrome) ordered Referral Ordered: Hollis Marino -[facility] Phys[facility] : Orthopaedic Surgery (related to Pain in right knee) ordered Referral Referred To: Hollis Marino [address] [place] [address] DR [address] [phone] Ordered: Referrals: Allopathic & Osteopathic Physicians : Orthopaedic Surgery. Hollis Marino. Evaluate and treat ordered Referral Ordered: US VENOUS DOPPLER ordered Referral Ordered: Physical Therapy (related to Lumbago) ordered Referral Ordered: Pain Medicine (related to Lumbago) ordered Referral Ordered: Referrals: Pain Medicine. Evaluate and treat ordered Referral Ordered: Physical Therapy (related to Lumbago) ordered Referral Referred To: Physical Therapy Ordered: Referrals: Physical Therapy. Evaluate and treat ordered Referral Ordered: LUMBAR XRAY AP AND LAT ONLY ordered Referral Ordered: SENSE NERVE CONDUCTION TEST ordered Referral Ordered: CERVICAL SPINE XRAY 2 OR 3 VIEWS ordered Referral Ordered: MOTOR NERVE CONDUCTION TEST ordered History Of Present Illness Encounter Date Complaint History Of Prese nt Illness pain1 Pt c/o medial to left scapular pain for several months Pt denies any radiation of pain to left arm Pt denies any neck pain Pt has DDD around neck Pt c/o sharp pain all day just medial to left scapular area. Pt denies any injury. Pt has not started physical therapy yet. and she has not heard from ortho and she states tht lidocaine patch does not help and she failed OTC NSAID hep Pt has hep C wit h elevated LFT Pt denies any abd pain or jaundice Her previous PCP referred her to GI many times but she has not seen GI yet. HLP Pt has HLP gout1 pt has elevated uric acid but no gout attacks. Pt is not aware of uric acid anxiety1 Pt has chronic a nxiety and depression Pt denies any suicidal or homicidal thought Pt has been having crying spells back pain1 Pt c/o medial to left scapular pain for several months Pt denies any radiation of pain to left arm Pt denies any neck pain Pt has DDD around neck Pt c/o sharp pain all day just medial to left scapular area. Pt denies any injury PHysical Pt needs annual physical. 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 Pt denies any loss of bladder control pt just had MRi of Lspine done by Dr. Wilkerson which showed DDD. Pt needs pain management pt has 7/10 sharp pain daily. Ibuprofen does not help knee pain1 Pt was carrying dresser down stairs and lost her footing and fell and twisted her right knee in the process 2 days ago. Pt c/o pain with sitting and bending. Pt does not have any swelling. Pt failed NSAID. Pt denies any head injury. Pt notices worsening pain with weight bearing. Patient noticed some swelling posterior right knee. Patient denies any recent travel or bed rest. Patient denies any calf pain. Patient denies any chest pain or shortness of breath. Patient has been taking [id number] NSAIDs which helps. weight gain1 Patient gained n early 40 pounds since 2 years ago. Patient is not very physically active. Patient is not on any special diet. Patient denies any fatigue. cough1 Pt has productiv e coughing for two weeks with hoarseness Pt denies any sob. Pt denies any chest pain. Pt denies any calf pain Pt denies any recent travel or bedrest pt denies any sore throat. PT denies any drooling or any trouble with swallowing or breathing rash1 Pt has diffuse i tchy rash all over body since 3 days ago. pt thinks that she may have come in contact with poison IV recently pt denies any trouble with swallowing or breathing .Pt denies any drainage. Pt did go to [place] [employer] prior to the onset of the rash. Pt notices intermittent severe itching. Physical Pt needs annual physical. Pt has chronic low back pain. Pt c/o sciatica and leg numbness. pt denies any worsening pain. Pt denies any loss of bladder control. Pt has above symptoms for several years. Pt had MRi done which showed mild DDD. pt has sharp low back pain daily. Pt has been taking ibuprofen without improvement. Pt has gained 30 pounds since two years ago. Pt is not very active Pt denies any other complaints overweight1 Pt is overweight . Pt states that she tried phentermine for 4 weeks and she did not lose any weight. Pt has been diet and exercising without any weight loss Pt is frustrated sinus Pt c/o sinus con gestion, running nose, postnasal drainage, mild coughing for several days hematuria1 Repeat UA ok. Pt denies any uTI symptoms thyroid1 Her repeat thyro id lab is normal. UTI1 Pt has ? mild UT i with hematuria. Pt denies any UTI symptoms. thyroid Pt has slighlty suppressed TSH. Pt denies any palpitation, chest pain, headache. Pt has difficulty losing weight. despite diet and exercise May-04-2016 low D Pt has low vitam i D Weight gain1 Pt has been gain ing weight and feeling bad about it. Pt has beeen diet and exercising without any weight loss. diarrhea1 pt has 3-4 nonbl oody diarrhea per day for the past 10 days. pt has mild nausea and vomiting as well. Pt notices mild midepigastric dullache as well. Pt denies any fever, chilll, sick contact. back pain1 Pt has chronic l ow back pain. Pt denies any loss of bowel or bladder control. Pt has muscle pain daily Pt notices sciatica and bilaterl leg numnbess. Pt has 7/10 back pain daily numbness1 Pt c/o chronic n umbness and tingling right forearm and right hand for several years. Pt has not done NCS yet. Pt tried and failed wrist splint. Pt c/o right hand pain sometimes. Pt denies any weakness. back pain1 Pt has been havi ng low back pain for several months. Pt states that she has been sleeping in a bad mattress recently at her mom house. Pt denies any sciatica. Pt denies any numnbess. Pt denies any other injury joint pain1 Pt has hisotry o f knee and foot pain but has not better since she stopped working. Pt still has not done lab yet weight gain1 Pt has been gain ing weight lately. Pt denies any change in diet and activity knee pain Location: knee. Additional information: Pt has chronic bilatearl knee, left foot and neck pain pain Pt has benign xrays. Instructions Date Instruction Additional Infor mation Increase physical activity Relat ed to Abnormal weight gain Quit smoking Related to Abnor mal weight gain Weight management Related to Abn ormal weight gain Special diet education Related t o Body mass index (BMI) 35.0-35.9, adult Special diet education Related t o Body mass index (BMI) 37.0-37.9, adult Quit smoking Related to Effus ion, right knee Weight management Related to Con tact dermatitis Increase physical activity Relat ed to Contact dermatitis Special diet education Related t o Body mass index (BMI) 36.0-36.9, adult Quit smoking Related to Encou nter for general adult medical exam w abnormal findings Prescribed dietary intake Relate d to Body mass index (BMI) 36.0-36.9, adult Prescribed Diet Educ ation/Lifestyle Education Regarding Diet Related to Dietary Surveillance and Counseling Prescribed Activity and Exercise Education Related to Dietary Surveillance and Counseling Prescribed Activity and Exercise Education Related to Dietary Surveillance and Counseling Prescribed Diet Educ ation/Lifestyle Education Regarding Diet Related to Dietary Surveillance and Counseling Prescribed Diet Educ ation/Lifestyle Education Regarding Diet Related to Dietary Surveillance and Counseling Prescribed Activity and Exercise Education Related to Dietary Surveillance and Counseling Giving encouragement to exercise Related to Dietary surveillance and counseling Special diet education Related t o Dietary surveillance and counseling Physical activity counseling Rel ated to Dietary surveillance counseling Decrease caloric intake Related to Dietary surveillance counseling Assessments Type Assessment Date assessment Bursitis of left shoulder Mental Status Date Cognitive Assessment Orientation - [place] ed to time, place, person, situation.
[2024-08-29 10:27] LABS: Alanine Aminotransferase 230 U/L (6-35); Albumin Level 4.1 g/dL (3.5-5.1); Alkaline Phosphatase 138 U/L (38-126); Anion Gap 6 mmol/L (4-12); Aspartate Amino Transferase 227 U/L (14-36); Bilirubin,Total 0.4 mg/dL (0.2-1.3); Blood Urea Nitrogen 13 mg/dL (7-17); Carbon Dioxide 27 mmol/L (22-30); Chloride 105 mmol/L (98-107); Cholesterol 194 mg/dL (0-200); Estimated Glomerular Filt Rate > 60; Glucose 102 mg/dL (65-110); HDL Direct 73 mg/dL; Potassium 3.7 mmol/L (3.4-5.0); Sodium 138 mmol/L (137-145); Total Protein 7.7 g/dL (6.3-8.2); Triglycerides 143 mg/dL (<150)
[2024-08-29 10:28] LABS: INR 0.9; Prothrombin Time 12.3 Seconds (11.1-14.7)
[2024-08-29 10:29] LABS: Iron 65 ug/dL (37-170)
[2024-08-29 10:32] LABS: Immunoglobulin G 1365 mg/dL (700-1600)
[2024-08-29 10:38] LABS: Hemoglobin A1C 5.3 % (<5.7); LDL Cholesterol Direct 87 mg/dL
[2024-08-29 10:39] LABS: Percent Iron Saturation 17 % (20-50)
[2024-08-29 11:06] LABS: Hepatitis B Surface Antigen Negative (Negative)
[2024-08-29 11:12] LABS: HAV RESULT Negative (Negative); Hepatitis B Core IgM Result Negative (Negative)
[2024-08-29 11:23] LABS: Hepatitis B Surface Anti Res Negative
[2024-08-29 11:31] LABS: Hepatitis C Virus Antibody Reactive (Negative)
[2024-08-30 07:14] LABS: Hepatitis B Core Ab Total NON-REACTIVE (NON-REACTIVE)
[2024-08-30 08:09] LABS: Hepatitis A Antibody Total REACTIVE (NON-REACTIVE)
[2024-08-30 13:44] LABS: Alpha-1-Antitrypsin, QN 158 mg/dL (83-199); Ceruloplasmin 26 mg/dL (14-48)
[2024-09-02 09:04] LABS: Hepatitis C RNA, Quant PCR 563000 IU/mL (NOT DETECTED)
[2024-09-02 11:24] LABS: Alpha Fetoprotein Tumor Marker 6.6 ng/mL
[2024-09-02 21:23] LABS: HCV Genotype, LiPA 1a
[2024-09-03 13:29] LABS: LKM 1 Antibody <=20.0 U (<=20.0)
[2024-09-04 08:18] LABS: Actin Antibody (IgG) <20 U (<20)
== END 2024-08-29 09:42 | disposition home or self-care (01) ==
LOC: ANHLAB 09:42
PROVIDERS: PCP Family Medicine; Visit Provider Nurse Practitioner
DX: B19.20 Unspecified viral hepatitis C without hepatic coma (principal); K76.0 Fatty (change of) liver, not elsewhere classified; Z83.49 Family history of other endocrine, nutritional and metabolic diseases; R74.8 Abnormal levels of other serum enzymes; K74.60 Unspecified cirrhosis of liver
CPT/HCPCS: 36415; 80053; 80061; 80074; 81596; 82103; 82105; 82390; 82728; 82784; 83036; 83520; 83540; 83550; 85027; 85610; 86038; 86039; 86364; 86376; 86704; 86706; 86708; 87340; 87522; 87902

== ENCOUNTER 2024-09-13 13:08 | Outpatient (CLI) | payer OTHER, SELFPAY ==
--- NOTE | ~2024-09-13 | US_ITS ---
Limited ABDOMINAL ULTRASOUND (Doppler ultrasound interrogation techniques used as needed for this exa m.) Ordering provider: Alyssa Burnett, [employer]OM[employer]BI[employer]S ASSEMBLER History: . B19.20 - Unspecified viral hepatitis C without hepatic coma . Comparison: None. FINDINGS: PANCREAS: Increased echogenicity suggestive of fat infiltration. Normal size. PORTAL VEIN: Hepatopedal flow demonstrated. LIVER: Normal size and increased echogenicity. No focal hepatic lesions or perihepatic fluid collecti ons are identified. BILIARY DUCTS: No intra or extrahepatic biliary dilation. Common bile duct measures 2 mm in diameter which is normal for patient's age. GALLBLADDER: Normal. No stones, sludge, gallbladder wall thickening or pericholecystic fluid. Wall th ickness is 2.2 mm Negative sonographic Espino's sign. FREE FLUID: None visualized within the upper abdomen. IMPRESSION: Fat infiltration of the liver and pancreas. Otherwise, normal limited abdominal ultrasound. Reviewed, dictated and finalized at location A.
== END 2024-09-13 13:09 | disposition home or self-care (01) ==
PROVIDERS: PCP Family Medicine; Visit Provider Nurse Practitioner
DX: B19.20 Unspecified viral hepatitis C without hepatic coma (principal); K76.0 Fatty (change of) liver, not elsewhere classified; R74.8 Abnormal levels of other serum enzymes; Z83.49 Family history of other endocrine, nutritional and metabolic diseases
CPT/HCPCS: 76705

== ENCOUNTER 2024-12-13 13:50 | Emergency (ER) | payer OTHER, SELFPAY ==
--- OUTSIDE RECORDS SUMMARY | 2024-12-13 13:52 | XMS_ITS | Clinical Summary ---
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 Emergency Department [address] [place] [address] Hunter Haynes MD Heat exhaustion, initial encounter (Primary Dx); Alcoholic intoxication without complication Discharge Disposition: Discharge to home or self care from Last 3 Months Immunizations Immunization Administration Dates Next Due Tdap [...] making you feel afraid or unsafe? 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 Gender Identity Not on file Sexual Orientation Not on file Obstetrics History Last Filed Vital Signs Vital Sign Reading Time Taken Comments Blood Pressure 131/89 09/17/2024 2:40 AM CDT Pulse 80 09/17/2024 2:40 AM CDT Temperature 36.7 C (98 F) 09/16/2024 9:59 PM CDT Respiratory Rate 18 09/17/2024 2:40 AM CDT Oxygen Saturation 96% 09/17/2024 2:40 AM CDT Inhaled Oxygen Concentration - - Weight 99.8 kg (220 lb) 09/16/2024 9:59 PM CDT Height 170.2 cm (5' 7) 09/16/2024 9:59 PM CDT Body Mass Index 34.46 09/16/2024 9:59 PM CDT Plan of Treatment Health Maintenance Due Date Last Done Comments Breast Cancer Screening-Mammogram 1980 Cervical Cancer Screening 1980 Depression Screening 1980 Varicella Vaccines (1 of 2 - 13+ 2-dose series) 1993 Hepatitis B Screening 1998 Regular Well Visit/Exam 18-64 1998 Pneumococcal vaccine <65 (1 of 2 - PCV) 10/31/1999 HPV Vaccines (1 - 3-dose SCDM series) 10/31/2007 Covid-19 Vaccine (2 - 2024- season) 11/18/202408/2020 Influenza Vaccine (#1) 2024 DTaP/Tdap/Td Vaccine (2 - Td or Tdap) 07/18/2031 Hepatitis C Screening Completed 04/27/2024 Procedures Procedure Name Priority Date/Time Associated Diagnosis Comments EGFR STAT 09/16/2024 11:42 PM CDT DIFFERENTIAL AUTO STAT 09/16/2024 11: 42 PM CDT ETHANOL STAT 09/16/2024 11:42 PM CDT CREATINE KINASE (CK), TOTAL STAT 09/16/2024 11:42 PM CDT BASIC METABOLIC PANEL STAT 09/16/2024 11:42 PM CDT CBC WITH AUTO DIFFERENTIAL STAT 09/16/2024 11:42 PM CDT from Last 3 Months Results * eGFR (09/16/2024 11:42 PM CDT) eGFR 82 >=60 mL/min/1. 73 m2 Comment: Interpretive Data Reference Interval Normal >/= 90 mL/min/1.73m2 Mildly decreased* 60 - 89 mL/min/1.73m2 Mildly to moderately decreased 45 - 59 mL/min/1.73m2 Moderately to severely decreased 30 - 44 mL/min/1.73m2 Severely decreased 15 - 29 mL/min/1.73m2 Kidney Failure < 15 mL/min/1.73m2 *Relative to young adult level Estimated glomerular filtration rate is determined by the 2020 CKD-EPI equation recommended by the National Kid[employer] (A Unifying Approach to GFR Estimation: Recommendations of the NKF-ASK Task Force on Reassessing the Inclusion of Race in Diagnosing Kidney Disease, JASN 2020). The CKD-EPI equation should not be used for patients with unstable renal function and has not been validated in children and those over 70. Current interpretive data was last reviewed 2021. Blood 09/16/2024 11:4 2 PM CDT 09/17/2024 12:06 AM CDT Hunter aHynes MD LAB BLOOD ORDERABLES Final Result [facility] [place] [address] * Differential, auto (09/16/2024 11:42 PM CDT) Pathologist [facility] Neutrophil abs 5.20 1.50 - 6.50 K/cumm Imm gran abs 0.07 0.00 - 0.10 K/cumm [facility] Lymphocyte abs 2.03 0.80 - 3.30 K/cumm [facility] Monocyte abs 0.61 0.20 - 0.80 K/cumm [facility] Eosinophil abs 0.13 0.00 - 0.50 K/cumm [facility] Basophil abs 0.04 0.00 - 0.10 K/cumm [facility] Neutrophil pct 64.4 % [facility] Comment: Interpretive Data Percent cell count reference ranges are not reported, since discordance with absolute values may lead to misinterpretation of CBC data. Current Interpretive Data was last revised on 2017. Imm gran pct 0.9 % [facility] Comment: Interpretive Data Percent cell count reference ranges are not reported, since discordance with absolute values may lead to misinterpretation of CBC data. Current Interpretive Data was last revised on 2017. Lymphocyte pct 25.1 % [facility] Comment: Interpretive Data Percent cell count reference ranges are not reported, since discordance with absolute values may lead to misinterpretation of CBC data. Current Interpretive Data was last revised on 2017. Monocyte pct 7.5 % [facility] Comment: Interpretive Data Percent cell count reference ranges are not reported, since discordance with absolute values may lead to misinterpretation of CBC data. Current Interpretive Data was last revised on 2017. Eosinophil pct 1.6 % [facility] Comment: Interpretive Data Percent cell count reference ranges are not reported, since discordance with absolute values may lead to misinterpretation of CBC data. Current Interpretive Data was last revised on 2017. Basophil pct 0.5 % [facility] Comment: Interpretive Data Percent cell count reference ranges are not reported, since discordance with absolute values may lead to misinterpretation of CBC data. Current Interpretive Data was last revised on 2017. Blood 09/16/2024 11:4 2 PM CDT 09/17/2024 12:06 AM CDT Hunter Haynes MD LAB BLOOD ORDERABLES Final Result [facility] [place] [address] * (ABNORMAL) CBC with auto differential (09/16/2024 11:42 PM CDT) WBC 8.08 3.80 - 9.90 K/cumm Hgb 13.7 11.9 - 15.5 g/dL [facility] Hct 41.6 35.6 - 45.5 % [facility] Plt 281 150 - 400 K/cumm [facility] MPV 9.9 9.1 - 12.3 fL [facility] RBC 4.40 3.90 - 5.20 M/cumm [facility] MCV 94.5 81.3 - 96.4 fL [facility] MCH 31.1 27.1 - 33.3 pg [facility] MCHC 32.9 32.3 - 35.7 g/dL [facility] RDW CV 12.8 11.1 - 14.9 % [facility] RDW SD 44.4 35.7 - 48.1 fL [facility] NRBC abs 0.03(H) 0.00 - 0.01 K/cumm [facility] Blood 09/16/2024 11:4 2 PM CDT 09/17/2024 12:06 AM CDT Hunter Haynes MD LAB BLOOD ORDERABLES Final Result Performing Organization Address [facility] de Phone Number [facility] [place] [address] * Creatine kinase (CK), total (09/16/2024 11:42 PM CDT) CK 113 30 - 200 Units/L Blood 09/16/2024 11:4 2 PM CDT 09/17/2024 12:06 AM CDT Hunter Haynes MD LAB BLOOD ORDERABLES Final Result Performing Organization Address [facility] [place] [address] * (ABNORMAL) Ethanol (09/16/2024 11:42 PM CDT) Ethanol 35(H) <=10 mg/dL Comment: Interpretive Data Legal limit of intoxication > or = 80 mg/dL Levels > or = 400 mg/dL are potentially TOXIC. Current interpretive data was last revised on 2018. Blood 09/16/2024 11:4 2 PM CDT 09/17/2024 12:06 AM CDT Hunter Haynes MD LAB BLOOD ORDERABLES Final Result Performing Organization Address [facility] de Phone Number [facility] [place] [address] * Basic metabolic panel (09/16/2024 11:42 PM CDT) Sodium 143 135 - 145 mmol/L Potassium, pl 4.0 3.3 - 4.9 mmol/L [facility] Chloride 109 97 - 110 mmol/L [facility] CO2 26 22 - 32 mmol/L [facility] Anion gap 8 2 - 15 mmol/L [facility] BUN 8 6 - 25 mg/dL [facility] Creatinine 0.89 0.60 - 1.10 mg/dL [facility] Glucose 106 70 - 199 mg/dL [facility] Comment: Interpretive Data Fasting glucose >/= 126 mg/dl is diagnostic for diabetes. Fasting is defined as no caloric intake for at least 8 hours. Fasting glucose between 100 mg/dl to 125 mg/dl is diagnostic of prediabetes. In a patient with classic symptoms of hyperglycemia or hyperglycemic crisis, a random glucose >/= 200 mg/dl is diagnostic for diabetes. In the absence of unequivocal hyperglycemia, results should be confirmed by repeat testing. The classification and Diagnosis of Diabetes Diabetes Care 2021; 46: S19-S40. Current interpretive data was last revised 2022. Calcium 8.8 8.5 - 10.3 mg/dL [facility] Blood 09/16/2024 11:4 2 PM CDT 09/17/2024 12:06 AM CDT Hunter Haynes MD LAB BLOOD ORDERABLES Final Result [facility] [place] [address] from Last 3 Months Insurance [facility] Care Teams Refrigerator Crater Relationship Specialty Start Date End Date Alexander Santos MD [address] [place] [address] PCP - General Family Medicine 09/17/24
--- OUTSIDE RECORDS SUMMARY | 2024-12-13 13:52 | XMS_ITS | Clinical Summary ---
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
--- OUTSIDE RECORDS SUMMARY | 2024-12-13 13:52 | XMS_ITS | Clinical Summary ---
Author Organization [facility] Address [address] [place] [phone] Phone Care Team Providers Care Transportation Security Screener Name Role Phone Unavailable Primary Care Provider [...] Encounters Date Type Department Care Team Description 12/03/2024 External Device Data [facility] ABSTRACTION Provider, Abstract 11/06/2024 External Device Data [facility]CTION Provider, Abstract 10/23/2024 External Device Data [facility] Provider, Abstract 10/15/2024 External Device Data [facility] Provider, Abstract 10/15/2024 External Device Data [facility] Provider, Abstract [...] on file 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
[2024-12-13 14:13] VITALS: BP 137/90; PULSE 110; RESP 18; TEMP 36.2; O2SAT 98
--- NOTE | 2024-12-13 15:35 | PC.NURSE ---
called for room, not in lobby
== END 2024-12-13 16:10 | disposition left against medical advice (07) ==
LOC: ANHED 16:01
PROVIDERS: PCP Family Medicine
DX: R10.9 Unspecified abdominal pain (principal)
CPT/HCPCS: 99199